=== PATIENT | female | born 1935 | race Caucasian/White ===

== ENCOUNTER 2018-12-15 15:28 | Inpatient (IN) | payer MEDICARE, MEDICAID ==
[~2018-12-15] VITALS: Ht 152.4 cm; Wt 50.3 kg
[2018-12-15] MEDS ORDERED: ALPR1TAB2 PO (15:44)
[2018-12-15] MEDS ORDERED: LEVO75TA59 PO (15:44)
[2018-12-15] MEDS ORDERED: PLEASE ENTER ALLERGIES MC SCH (15:47)
[2018-12-15] MEDS ORDERED: methylPREDNISolone SOD SUCC 125 MG/2 ML ONE (15:53)
[2018-12-15] MEDS ORDERED: methylPREDNISolone SOD SUCC 125 MG/2 ML IVP ONE (16:00)
[2018-12-15] MEDS ORDERED: SODIUM CHLORIDE FLUSH 10ML SYR IVF ONE (16:00)
[2018-12-15] MEDS ORDERED: ALBUTEROL/IPRATROPIUM 2.5MG/0.5MG, 3 ML NPPB SCH (16:00)
--- NOTE | 2018-12-15 16:00 | NUR ---
PT MEDICATED PER EMAR.
[2018-12-15 16:01] LABS: MEAN CORPUSCULAR HEMOGLOBIN 25.8 pg (27.0-34.8); MEAN CORPUSCULAR HGB CONC 32.1 g/dL (32.4-35.8); MEAN CORPUSCULAR VOLUME 80.5 fL (80-100); MEAN PLATELET VOLUME 8.5 fL (7.4-10.4); PLATELET COUNT 265 x10^3/uL (130-400); RED BLOOD COUNT 4.71 x10^6/uL (3.82-5.3); RED CELL DISTRIBUTION WIDTH 16.1 % (9.6-15.2)
[2018-12-15] MEDS ORDERED: ALBUTEROL/IPRATROPIUM 2.5MG/0.5MG, 3 ML ONE ×2 (16:04→16:26)
[2018-12-15 16:10] LABS: INTERNATIONAL NORMALIZED RATIO 1.18 (0.93-1.1); PROTHROMBIN TIME 12.3 Seconds (9.6-11.5)
[2018-12-15 16:12] LABS: ALANINE AMINOTRANSFERASE 8 U/L (12-78); ALBUMIN 2.8 g/dL (3.4-5.0); ANION GAP 10 mmol/L (5-15); CHLORIDE 100 mmol/L (98-107); CREATININE 1.17 mg/dL (0.55-1.02)
[2018-12-15 16:16] LABS: ALKALINE PHOSPHATASE 76 U/L (45-117); BILIRUBIN,TOTAL 1.1 mg/dL (0.2-1.0); TOTAL PROTEIN 7.5 g/dL (6.4-8.2)
[2018-12-15 16:25] LABS: BASOPHILS # (AUTO) 0.03 x10^3/uL (0-0.1); BASOPHILS % (AUTO) 0 % (0-1); EOSINOPHILS % (AUTO) 0 % (1-7); LYMPHOCYTES # (AUTO) 0.69 x10^3/uL (1-3.4); LYMPHOCYTES % (AUTO) 4 % (22-44); MD SCAN; MONOCYTES # (AUTO) 0.61 x10^3/uL (0.2-0.8); MONOCYTES % (AUTO) 4 % (2-9); NEUTROPHILS # (AUTO) 15.22 x10^3/uL (1.8-6.8); NEUTROPHILS % (AUTO) 92 % (42-75)
[2018-12-15] MEDS ORDERED: CEFTRIAXONE PMX 1GM/50ML 50 ML ONE (16:26)
[2018-12-15] MEDS ORDERED: POTASSIUM CHLORIDE 20 MEQ TAB.ER.PRT ONE (16:26)
[2018-12-15] MEDS ORDERED: CEFTRIAXONE PMX 1GM/50ML 50 ML IVPB ONE (16:30)
[2018-12-15] MEDS ORDERED: AZITHROMYCIN 500 MG in SODIUM CHLORIDE 0.9% 250 ML IVPB ONE (16:30)
--- NOTE | 2018-12-15 16:32 | NUR ---
RT AT BEDSIDE PERFORMING BREATHING TX. RN ADMINISTERED ABX PER EMAR. 2/2 BLOOD CULTURES DRAWN. PT BEING ADMITTED TO HOSPITAL. FAMILY UPDATED.
[2018-12-15] MEDS ORDERED: POTASSIUM CHLORIDE 20 MEQ TAB.ER.PRT PO ONE (17:00)
[2018-12-15] MEDS ORDERED: SODIUM CHLORIDE FLUSH 10ML SYR IVF PRN (17:00)
[2018-12-15] MEDS ORDERED: SERT50TA PO (17:24)
--- NOTE | 2018-12-15 17:25 | NUR ---
OKAY TO ORDER FOOD FOR PT. [facility] AT BEDSIDE ADMITTING PT.
[2018-12-15] MEDS ORDERED: LABETALOL 5 MG/ML SYRINGE IVPush PRN (18:00)
[2018-12-15] MEDS ORDERED: ONDANSETRON 2MG/ML, 2ML IVPush PRN (18:00)
[2018-12-15] MEDS ORDERED: ALBUTEROL/IPRATROPIUM 2.5MG/0.5MG, 3 ML NPPB PRN (18:30)
--- NOTE | 2018-12-15 18:30 | NUR ---
PT RESTING COMFORTABLY ON GURNEY EATING DINNER. FAMILY AT BEDSIDE. NO COMPLAINTS OF PAIN OR DISCOMFORT AT THIS TIME. AWAITING BED ASSIGNMENT.
[2018-12-15] MEDS: ALBUTEROL/IPRATROPIUM 2.5MG/0.5MG, 3 ML NPPB SCH ×2 (19:00→23:00)
--- NOTE | 2018-12-15 19:09 | NUR ---
REPORT TO AILYN CARLOS.
--- NOTE | 2018-12-15 19:52 | NUR ---
REPORT 336 IKER CARLOS
[2018-12-15 20:26] VITALS: BP 151/64
[2018-12-16 00:25] VITALS: BP 117/63
[2018-12-16] MEDS: ALBUTEROL/IPRATROPIUM 2.5MG/0.5MG, 3 ML NPPB SCH ×5 (03:00→19:00)
[2018-12-16] MEDS: LEVOTHYROXINE 75 MCG TABLET PO SCH (06:26)
[2018-12-16 07:20] VITALS: BP 131/59
[2018-12-16] MEDS: AZITHROMYCIN 250 MG TABLET PO SCH (08:11)
[2018-12-16] MEDS: SERTRALINE 50MG TABLET PO SCH (08:11)
[2018-12-16 08:20] LABS: MEAN CORPUSCULAR HEMOGLOBIN 25.6 pg (27.0-34.8); MEAN CORPUSCULAR HGB CONC 31.8 g/dL (32.4-35.8); MEAN CORPUSCULAR VOLUME 80.6 fL (80-100); MEAN PLATELET VOLUME 8.9 fL (7.4-10.4); PLATELET COUNT 231 x10^3/uL (130-400); RED BLOOD COUNT 4.45 x10^6/uL (3.82-5.3); RED CELL DISTRIBUTION WIDTH 16.5 % (9.6-15.2)
[2018-12-16 08:32] LABS: ANION GAP 7 mmol/L (5-15); CALCIUM 7.9 mg/dL (8.5-10.1); CHLORIDE 104 mmol/L (98-107); CREATININE 0.85 mg/dL (0.55-1.02)
[2018-12-16 08:56] LABS: BASOPHILS # (AUTO) 0.01 x10^3/uL (0-0.1); BASOPHILS % (AUTO) 0 % (0-1); EOSINOPHILS % (AUTO) 0 % (1-7); LYMPHOCYTES # (AUTO) 0.56 x10^3/uL (1-3.4); LYMPHOCYTES % (AUTO) 4 % (22-44); MD SCAN; MONOCYTES # (AUTO) 0.54 x10^3/uL (0.2-0.8); MONOCYTES % (AUTO) 4 % (2-9); NEUTROPHILS % (AUTO) 93 % (42-75)
[2018-12-16] MEDS ORDERED: ALPRazolam 1MG TAB PO SCH (09:00)
[2018-12-16 13:16] VITALS: BP 125/55
[2018-12-16] MEDS ORDERED: CEFTRIAXONE PMX 1GM/50ML 50 ML IV SCH (14:00)
[2018-12-16 18:58] VITALS: BP 126/73
[2018-12-17 02:31] VITALS: BP 108/44
[2018-12-17] MEDS: LEVOTHYROXINE 75 MCG TABLET PO SCH (05:32)
[2018-12-17 06:52] VITALS: BP 122/67
[2018-12-17] MEDS: ALBUTEROL/IPRATROPIUM 2.5MG/0.5MG, 3 ML NPPB SCH ×3 (07:21→19:52)
[2018-12-17] MEDS: AMOXICILLIN 500 MG CAPSULE PO SCH ×3 (08:30→19:48)
[2018-12-17] MEDS: AZITHROMYCIN 250 MG TABLET PO SCH (08:30)
[2018-12-17] MEDS: SERTRALINE 50MG TABLET PO SCH (08:31)
[2018-12-17 12:39] VITALS: BP 113/73
[2018-12-17 19:30] VITALS: BP 138/73
[2018-12-18 01:08] VITALS: BP 151/68
[2018-12-18 04:51] LABS: BASOPHILS # (AUTO) 0.01 x10^3/uL (0-0.1); BASOPHILS % (AUTO) 0 % (0-1); EOSINOPHILS % (AUTO) 0 % (1-7); LYMPHOCYTES # (AUTO) 0.66 x10^3/uL (1-3.4); LYMPHOCYTES % (AUTO) 5 % (22-44); MD NO; MEAN CORPUSCULAR HEMOGLOBIN 25.7 pg (27.0-34.8); MEAN CORPUSCULAR HGB CONC 31.8 g/dL (32.4-35.8); MEAN CORPUSCULAR VOLUME 80.7 fL (80-100); MEAN PLATELET VOLUME 8.5 fL (7.4-10.4); MONOCYTES % (AUTO) 5 % (2-9); NEUTROPHILS # (AUTO) 12.17 x10^3/uL (1.8-6.8); NEUTROPHILS % (AUTO) 90 % (42-75); PLATELET COUNT 290 x10^3/uL (130-400); RED BLOOD COUNT 4.18 x10^6/uL (3.82-5.3)
[2018-12-18 05:00] LABS: ANION GAP 5 mmol/L (5-15); CALCIUM 8.2 mg/dL (8.5-10.1); CHLORIDE 108 mmol/L (98-107); CREATININE 0.83 mg/dL (0.55-1.02)
[2018-12-18] MEDS: LEVOTHYROXINE 75 MCG TABLET PO SCH (05:33)
[2018-12-18 06:58] VITALS: BP 123/74
[2018-12-18] MEDS: SERTRALINE 50MG TABLET PO SCH (08:22)
[2018-12-18] MEDS: AZITHROMYCIN 250 MG TABLET PO SCH (08:23)
[2018-12-18] MEDS: AMOXICILLIN 500 MG CAPSULE PO SCH ×3 (08:23→20:10)
[2018-12-18] MEDS: ALBUTEROL/IPRATROPIUM 2.5MG/0.5MG, 3 ML NPPB SCH ×2 (09:00→21:00)
[2018-12-18] MEDS ORDERED: AZIT250T89 PO (09:01)
[2018-12-18] MEDS ORDERED: PRED20TA PO (09:01)
[2018-12-18] MEDS ORDERED: ALBU8.5H8 PO (09:01)
[2018-12-18] MEDS ORDERED: AMOX-291 PO (09:01)
[2018-12-18 14:14] VITALS: BP 132/66
[2018-12-18 19:23] VITALS: BP 137/75
[2018-12-19 01:41] VITALS: BP 134/79
[2018-12-19] MEDS: LEVOTHYROXINE 75 MCG TABLET PO SCH (05:12)
[2018-12-19 07:20] VITALS: BP 126/65
[2018-12-19] MEDS: ALBUTEROL/IPRATROPIUM 2.5MG/0.5MG, 3 ML NPPB SCH (08:00)
[2018-12-19] MEDS: SERTRALINE 50MG TABLET PO SCH (08:41)
== END 2018-12-19 11:25 | disposition home or self-care (01) | DRG 177 ==
LOC: ED 16:55 → EDIP 16:56 → ED 17:07 → 3NW 20:22 → DCLOUNGE 12-19 11:11
PROVIDERS: ADMIT Family Medicine; ATTEND Family Medicine
DX: J15.6 Pneumonia due to other Gram-negative bacteria (principal); J96.01 Acute respiratory failure with hypoxia; N17.9 Acute kidney failure, unspecified; E03.9 Hypothyroidism, unspecified; E78.5 Hyperlipidemia, unspecified; E87.6 Hypokalemia; F41.9 Anxiety disorder, unspecified; H91.90 Unspecified hearing loss, unspecified ear; Z79.899 Other long term (current) drug therapy; Z87.891 Personal history of nicotine dependence; J15.9 Unspecified bacterial pneumonia
CPT/HCPCS: 36415; 71045; 80048; 80053; 83605; 83880; 85025; 85610; 85730; 87040; 93005; 94640; 96365; 96367; 96375; 99285; G0378; J0456; J0696; J7620; J2930; J7050; J7512